=== PATIENT | male | born 1985 | race Two or more races ===

== ENCOUNTER 2020-05-14 13:52 | Emergency (ER) | payer SELFPAY ==
[~2020-05-14] VITALS: Ht 177.8 cm; Wt 120.2 kg
[2020-05-14 14:06] VITALS: BP 168/112
[2020-05-14] MEDS ORDERED: traMADol HCL 50 MG TAB PO ONE (18:45)
== END 2020-05-14 18:51 | disposition home or self-care (01) ==
LOC: ER 13:52
DX: S52.571A Other intraarticular fracture of lower end of right radius, initial encounter for closed fracture (principal); S52.611A Displaced fracture of right ulna styloid process, initial encounter for closed fracture; W01.0XXA Fall on same level from slipping, tripping and stumbling without subsequent striking against object, initial encounter; Y93.68 Activity, volleyball (beach) (court); Y92.39 Other specified sports and athletic area as the place of occurrence of the external cause; Y99.8 Other external cause status
CPT/HCPCS: 29125; 73110